=== PATIENT | female | born 1955 | race Caucasian/White ===

== ENCOUNTER 2021-03-08 10:41 | Inpatient (IN) | payer MEDICARE, MEDICAID ==
[~2021-03-08] VITALS: Ht 175.3 cm; Wt 85.1 kg
[2021-03-08 11:32] LABS: HEMOGLOBIN 17.3 gm/dl (12.3-15.3); RED BLOOD COUNT 5.77 M/UL (4.00-5.10); WHITE BLOOD COUNT 17.4 K/UL (4.5-11.0)
[2021-03-08 12:11] LABS: BUN/CREATININE RATIO 46 (0-10)
[2021-03-08 19:34] LABS: BUN/CREATININE RATIO 60 (0-10)
[2021-03-08 21:12] LABS: BUN/CREATININE RATIO 57 (0-10)
[2021-03-09 02:04] LABS: BUN/CREATININE RATIO 58 (0-10)
[2021-03-09 07:28] LABS: HEMOGLOBIN 14.2 gm/dl (12.3-15.3); RED BLOOD COUNT 5.03 M/UL (4.00-5.10); WHITE BLOOD COUNT 9.9 K/UL (4.5-11.0)
[2021-03-09 07:33] LABS: BUN/CREATININE RATIO 46 (0-10)
[2021-03-09 11:52] LABS: BUN/CREATININE RATIO 53 (0-10)
[2021-03-09 15:50] LABS: BUN/CREATININE RATIO 49 (0-10)
[2021-03-09 23:23] LABS: BUN/CREATININE RATIO 42 (0-10)
[2021-03-10 07:20] LABS: HEMOGLOBIN 13.2 gm/dl (12.3-15.3); RED BLOOD COUNT 4.69 M/UL (4.00-5.10); WHITE BLOOD COUNT 8.3 K/UL (4.5-11.0)
[2021-03-10 07:51] LABS: BUN/CREATININE RATIO 33 (0-10)
[2021-03-11 12:49] LABS: BUN/CREATININE RATIO 25 (0-10)
[2021-03-13] MEDS ORDERED: GLUCOPHAGE 850850 MG PO (11:11)
[2021-03-13] MEDS ORDERED: INSULIN SYRING MC (11:11)
[2021-03-13] MEDS ORDERED: ACCU-CHEK AVIV1 EAC2 MC (11:11)
[2021-03-13] MEDS ORDERED: THERAGRAN M TAB1 EA PO (11:11)
[2021-03-13] MEDS ORDERED: ACCU-CHEK1 EACH MC (11:11)
[2021-03-13] MEDS ORDERED: NOVOLOG MI100 UNIT/1 SC ×2 (11:11→11:24)
[2021-03-13] MEDS ORDERED: VITAMIN D250 MCG PO (11:11)
[2021-03-13] MEDS ORDERED: ASPIRIN EC81 MG PO (11:11)
[2021-03-13] MEDS ORDERED: LISINOPRIL10 MG PO (11:11)
[2021-03-13] MEDS ORDERED: ACCU-CHEK AVIV1 EAC1 MC (11:11)
== END 2021-03-13 12:17 | disposition home or self-care (01) | DRG 637 ==
LOC: ER1 10:41 → CDU 16:13 → MED SURG 4 16:13 → CCU 16:13 → MED SURG 4 03-10 18:10
PROVIDERS: Internal Medicine Infectious Disease; Physician Assistant; ADMIT Internal Medicine
DX: E11.10 Type 2 diabetes mellitus with ketoacidosis without coma (principal); N17.0 Acute kidney failure with tubular necrosis; G93.41 Metabolic encephalopathy; N30.00 Acute cystitis without hematuria; Z20.822 Contact with and (suspected) exposure to COVID-19; E78.5 Hyperlipidemia, unspecified; B95.1 Streptococcus, group B, as the cause of diseases classified elsewhere; E87.6 Hypokalemia; E86.0 Dehydration; K52.9 Noninfective gastroenteritis and colitis, unspecified; E55.9 Vitamin D deficiency, unspecified; R53.81 Other malaise; I10 Essential (primary) hypertension; Z91.14 Patient's other noncompliance with medication regimen; Z86.73 Personal history of transient ischemic attack (TIA), and cerebral infarction without residual deficits; Z79.01 Long term (current) use of anticoagulants; Z79.82 Long term (current) use of aspirin; Z79.4 Long term (current) use of insulin
CPT/HCPCS: 36415; 36600; 51702; 70450; 71045; 80048; 80053; 81001; 82009; 82140; 82550; 82553; 82607; 82803; 82962; 83036; 83605; 83735; 83874; 84443; 84484; 85025; 87040; 87077; 87086; 92526; 92610; 93005; 96365; 96366; 96375; 97110-GP-CQ; 97162; 97530-GP-CQ; 99285; J0696; J1650; J3370; J3480; J7030; U0002